=== PATIENT | female | born 1980 | race Caucasian/White ===

== ENCOUNTER 2018-08-28 14:22 | Emergency (ER) | payer MEDICAID ==
[2018-08-28] MEDS: KETOROLAC 60 MG INJ IM (17:19)
[2018-08-28 17:49] LABS: ADD UMIC YES; UR ASCORBIC ACID NEGATIVE (NEGATIVE); UR BACTERIA FEW /HPF (NONE SEEN); UR BILIRUBIN (Dip) NEGATIVE (NEGATIVE); UR BLOOD (Dip) 3+ mg/dL (NEGATIVE); UR CLARITY CLOUDY (CLEAR); UR COLOR YELLOW (YELLOW); UR GLUCOSE (Dip) NEGATIVE (NEGATIVE); UR KETONES (Dip) TRACE mg/dL (NEGATIVE); UR LEUKOCYTE ESTERASE (Dip) 3+ Leu/ul (NEGATIVE); UR MUCUS FEW /HPF (NONE SEEN); UR NITRITE (Dip) NEGATIVE (NEGATIVE); UR RBC > 182 /HPF (0-5); UR SPECIFIC GRAVITY (Dip) 1.034 (1.003-1.030); UR SQUAMOUS EPITHELIAL CELL FEW /HPF (FEW); UR TOTAL PROTEIN (Dip) 1+ mg/dl (NEGATIVE); UR UROBILINOGEN (Dip) 1+ mg/dL (NEGATIVE); UR WBC 56 /HPF (0-5)
[2018-08-28] MEDS: CEFTRIAXONE 1 GM INJ IM (18:25)
[2018-08-28] MEDS: LIDOCAINE 1% (MPF) 5 ML VIAL INJ (18:25)
== END 2018-08-28 18:38 | disposition home or self-care (01) ==
LOC: FTE 14:22
DX: M54.5 Low back pain (principal)
CPT/HCPCS: 72100; 81001; 81025; 96372; 99284-25